=== PATIENT | female | born 1945 | race Caucasian/White ===

== ENCOUNTER → 2023-09-11 10:32 | Outpatient (REF) | payer MEDICARE, SELFPAY | LOC: RAD 10:32 | PROVIDERS: ATTENDING PHYSICIAN Family Medicine | DX: S99.912A Unspecified injury of left ankle, initial encounter (principal) | CPT/HCPCS: 73590; 73610 ==

== ENCOUNTER → 2024-01-01 12:48 | Outpatient (REF) | payer MEDICARE, SELFPAY | LOC: WDC 12:48 | PROVIDERS: ATTENDING PHYSICIAN Family Medicine | DX: Z12.31 Encounter for screening mammogram for malignant neoplasm of breast (principal) | CPT/HCPCS: 77063; 77067 ==

== ENCOUNTER → 2025-01-29 12:00 | Outpatient (REF) | payer MEDICARE, SELFPAY | LOC: DHSLP 12:00 | PROVIDERS: ATTENDING PHYSICIAN Internal Medicine Critical Care Medicine; FAMILY PHYSICIAN Family Medicine | DX: G47.33 Obstructive sleep apnea (adult) (pediatric) (principal); R09.02 Hypoxemia | CPT/HCPCS: 95800 ==